=== PATIENT | female | born 1950 | race Asian ===

== ENCOUNTER → 2017-01-01 | Outpatient (CLI) | payer BC ==
--- NOTE | 2017-01-01 17:13 | DIAGNOSTIC IMAGING REPORT ---
LEFT WRIST MIN 3 VIEWS ROUTINE CLINICAL HISTORY: Left wrist pain COMPARISON: None. DISCUSSION: No acute fractures are visualized. 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 IMPRESSION: 1. No acute fractures 2. Advanced osteoarthritic changes at the level of the first carpal metacarpal joint. Electronically signed by: Clarke Lamb M.D. 01/01/2017 5:12 PM Dictated Date/Time: 01/01/2017 5:11 PM
== END | disposition home or self-care (01) ==
LOC: C.RAD1850 16:37
PROVIDERS: ATTEND Internal Medicine
DX: M77.8 Other enthesopathies, not elsewhere classified (principal)

== ENCOUNTER → 2017-05-02 | Outpatient (CLI) | payer BC ==
--- NOTE | 2017-05-14 11:27 | CODING QUERY MEDICAL NECESSITY ---
CQSUPPORTING DIAGNOSIS NEEDED A supporting diagnosis is required for the test/procedure performed on this patient in order for us to be reimbursed by the patient's insurance. Please provide a supporting diagnosis for the following test/procedure listed below next to the test name along with your signature. *If there is no additional diagnosis for this patient that would support the following test/procedure please document that below next to the test/procedure. Test(s)/Procedure(s) that require a supporting diagnosis: BARRY 05/02/17 BONE MINERAL DENSITY STUDY Provider Signature: Date: Thank you Nancy Cherry [facility] Information Management Once completed, please kindly fax back to [phone] For questions please call [phone]
== END | disposition home or self-care (01) ==
LOC: C.MAMM 13:21
PROVIDERS: ATTEND Internal Medicine
DX: Z13.820 Encounter for screening for osteoporosis (principal)